=== PATIENT | female | born 1995 | race Caucasian/White ===

== ENCOUNTER 2023-01-12 20:40 | Inpatient (IN) | payer BC ==
[2023-01-12] MEDS ORDERED: ELECTROLYTE-148 SOLN 1,000 ML IV SCH (21:45)
[2023-01-12] MEDS ORDERED: AMPICILLIN SODIUM 2 GM VIAL ONE (21:53)
[2023-01-12] MEDS ORDERED: AMPICILLIN - 2 GM in SODIUM CHLORIDE 100 ML IVPB ONE (22:00)
[2023-01-12 22:09] LABS: BASO % 0.2 % (0-2.0); EOS % 1.3 % (0-4.5); HEMATOCRIT 34.5 % (32.4-45.2); HEMOGLOBIN 12.1 GM/dL (10.7-15.3); LYMPH % 15.8 % (8-40); MCH 31.2 pg (25.7-33.7); MCHC 35.1 g/dl (32.0-36.0); MEAN PLT VOLUME 10.4 fl (7.5-11.1); MONO % 10.5 % (3.8-10.2); NEUT % 72.2 % (42.8-82.8); PLATELET COUNT 149 10^3/uL (134-434); RBC 3.88 M/mm3 (3.60-5.2); RDW 12.9 % (11.6-15.6); WHITE BLOOD COUNT 10.9 K/mm3 (4.0-10.0)
[2023-01-12 22:17] LABS: INR 1.03 (0.83-1.09); PROTHROMBIN TIME (PATIENT) 11.9 SEC (9.7-13.0)
[2023-01-12 22:19] LABS: ACTIVATED PTT 26.2 SECONDS (25.2-36.5)
[2023-01-12 22:23] VITALS: BMI 24.1
[2023-01-12 22:41] LABS: POTASSIUM 4.2 mmol/L (3.5-5.1)
[2023-01-12 22:42] LABS: CALCIUM 8.8 mg/dL (8.5-10.1)
[2023-01-12 22:43] LABS: BLOOD UREA NITROGEN 6.2 mg/dL (7-18)
[2023-01-12 22:46] LABS: CREATININE 0.5 mg/dL (0.55-1.3)
[2023-01-13] MEDS: AMPICILLIN - 1 GM in SODIUM CHLORIDE 100 ML IVPB SCH ×2 (01:45→05:20)
[2023-01-13] MEDS ORDERED: AMPICILLIN SODIUM 1 GM VIAL ONE ×2 (01:45→05:16)
[2023-01-13] MEDS ORDERED: OXYTOCIN 20 UNITS in 0.9% NS 20 UNIT/1,000 ML INFUS.BAG IV ONE (02:34)
[2023-01-13] MEDS ORDERED: BISACODYL 10 MG SUPP.RECT RC PRN (07:23)
[2023-01-13] MEDS ORDERED: ACETAMINOPHEN 325 MG TABLET (FP) PO PRN (07:23)
[2023-01-13] MEDS ORDERED: BENZOCAINE 20% 57 GM BOTTLE TP PRN (07:23)
[2023-01-13] MEDS ORDERED: IBUPROFEN 600 MG TABLET (FP) PO PRN (07:23)
[2023-01-13] MEDS ORDERED: oxyCODONE HCL 5 MG TABLET PO PRN (07:23)
[2023-01-13] MEDS ORDERED: BENZOCAINE 28 GM HEMORRHOIDAL OINTMENT TP PRN (07:23)
[2023-01-13] MEDS ORDERED: METHYLERGONOVINE MALEATE 0.2 MG/1 ML AMP IM PRN (07:23)
[2023-01-13] MEDS ORDERED: WITCH HAZEL 50% (TUCKS) 40 PAD/JAR PAD TP PRN (07:23)
[2023-01-13] MEDS ORDERED: OXYTOCIN 20 UNITS in 0.9% NS 20 UNIT/1,000 ML INFUS.BAG IV SCH (07:30)
[2023-01-13] MEDS: PRENATAL VITAMINS W/ FOLIC ACID TABLET (FP) PO SCH (09:49)
[2023-01-14 07:34] LABS: BASO % 0.3 % (0-2.0); HEMATOCRIT 30.4 % (32.4-45.2); LYMPH % 15.8 % (8-40); MCHC 36.2 g/dl (32.0-36.0); MEAN CELL VOLUME 88.5 fl (80-96); MEAN PLT VOLUME 10.9 fl (7.5-11.1); MONO % 10.5 % (3.8-10.2); NEUT % 72.4 % (42.8-82.8); PLATELET COUNT 137 10^3/uL (134-434); RBC 3.44 M/mm3 (3.60-5.2); RDW 12.8 % (11.6-15.6); WHITE BLOOD COUNT 12.2 K/mm3 (4.0-10.0)
[2023-01-14] MEDS: PRENATAL VITAMINS W/ FOLIC ACID TABLET (FP) PO SCH (09:05)
[2023-01-14] MEDS ORDERED: SENNOSIDES/DOCUSATE COMBO (SENNA PLUS) TABLET (UD) PO PRN (22:00)
[2023-01-15] MEDS: PRENATAL VITAMINS W/ FOLIC ACID TABLET (FP) PO SCH (09:42)
[2023-01-15 10:39] VITALS: BP 115/73; PULSE 81; RESP 16; TEMP 99
== END 2023-01-15 12:20 | disposition home or self-care (01) | DRG 807 ==
LOC: JDEL 20:40 → JLDR 21:20 → J3W 01-13 08:35
PROVIDERS: ADMIT Obstetrics & Gynecology; ATTEND Obstetrics & Gynecology
PROC: 0W8NXZZ Division of Female Perineum, External Approach (ICD-10-PCS; principal; 2023-01-13)
PROC: 10E0XZZ Delivery of Products of Conception, External Approach (ICD-10-PCS; 2023-01-13)
DX: O99.824 Streptococcus B carrier state complicating childbirth (principal); Z37.0 Single live birth; O99.02 Anemia complicating childbirth; D64.9 Anemia, unspecified; Z3A.38 38 weeks gestation of pregnancy
CPT/HCPCS: 36415; 80048; 85025; 85610; 85730; 86780; 86850; 86900; 86901; 87635

== ENCOUNTER 2024-01-07 10:00 | Observation (INO) | payer BC ==
[2024-01-07] MEDS: ELECTROLYTE-148 SOLN 500 ML IV SCH (11:36)
[2024-01-07] MEDS: ELECTROLYTE-148 SOLN 1,000 ML IV SCH (12:40)
[2024-01-07 15:16] LABS: BASO % 0.2 % (0-2.0); EOS % 1.7 % (0-4.5); HEMATOCRIT 33.8 % (32.4-45.2); HEMOGLOBIN 11.7 GM/dL (10.7-15.3); LYMPH % 13.4 % (8-40); MCH 31.3 pg (25.7-33.7); MCHC 34.5 g/dl (32.0-36.0); MEAN CELL VOLUME 90.7 fl (80-96); MEAN PLT VOLUME 9.7 fl (7.5-11.1); MONO % 7.7 % (3.8-10.2); PLATELET COUNT 158 10^3/uL (134-434); RBC 3.73 M/mm3 (3.60-5.2); RDW 12.8 % (11.6-15.6); WHITE BLOOD COUNT 11.5 K/mm3 (4.0-10.0)
[2024-01-07 15:21] LABS: INR 1.05 (0.83-1.09); PROTHROMBIN TIME (PATIENT) 11.8 SEC (9.7-13.0)
[2024-01-07 15:23] LABS: ACTIVATED PTT 27.3 SECONDS (25.2-36.5)
[2024-01-07 15:39] LABS: CALCIUM 8.4 mg/dL (8.5-10.1); POTASSIUM 4.1 mmol/L (3.5-5.1)
[2024-01-07 15:40] LABS: BLOOD UREA NITROGEN 6.3 mg/dL (7-18)
[2024-01-07 15:43] LABS: CREATININE 0.5 mg/dL (0.55-1.3)
[2024-01-07] MEDS ORDERED: TERBUTALINE SULFATE 1 MG/1 ML VIAL SQ ONE (17:54)
[2024-01-07] MEDS ORDERED: FENTANYL CITRATE/PF 50 MCG/ML VIAL ONE (17:56)
[2024-01-07] MEDS ORDERED: BUPIVACAINE HCL/PF 0.25% (2.5MG/ML) 10 ML VIAL ONE (17:56)
[2024-01-07] MEDS: TERBUTALINE SULFATE 1 MG/1 ML VIAL SQ ONE (18:15)
[2024-01-07 18:25] VITALS: BMI 25.0
[2024-01-07] MEDS ORDERED: BETAMET ACET/BETAMET NA PH 30 MG/5 ML VIAL ONE (21:12)
[2024-01-07] MEDS: BETAMET ACET/BETAMET NA PH 30 MG/5 ML VIAL IM ONE (21:20)
[2024-01-07 22:17] LABS: HIV INTERPRETATION NEGATIVE (NEGATIVE)
[2024-01-08] MEDS ORDERED: FENTANYL CITRATE/PF 50 MCG/ML VIAL ONE (10:07)
[2024-01-08] MEDS: TERBUTALINE SULFATE 1 MG/1 ML VIAL SQ ONE (10:08)
[2024-01-08 11:52] VITALS: RESP 20
[2024-01-08 13:51] VITALS: BP 105/60; PULSE 94; TEMP 98.1
== END 2024-01-08 13:35 | disposition home or self-care (01) ==
LOC: JDEL 10:00 → JLDR 14:50
PROVIDERS: ADMIT Obstetrics & Gynecology; ATTEND Obstetrics & Gynecology
PROC: 10S0XZZ Reposition Products of Conception, External Approach (ICD-10-PCS; principal; 2024-01-07)
PROC: 3E013GC Introduction of Other Therapeutic Substance into Subcutaneous Tissue, Percutaneous Approach (ICD-10-PCS; 2024-01-07)
PROC: 3E023GC Introduction of Other Therapeutic Substance into Muscle, Percutaneous Approach (ICD-10-PCS; 2024-01-07)
PROC: 3E0337Z Introduction of Electrolytic and Water Balance Substance into Peripheral Vein, Percutaneous Approach (ICD-10-PCS; 2024-01-07)
DX: O60.03 Preterm labor without delivery, third trimester (principal); Z3A.36 36 weeks gestation of pregnancy; O32.1XX0 Maternal care for breech presentation, not applicable or unspecified
CPT/HCPCS: 36415; 59025; 80048; 85025; 85610; 85730; 86780; 86850; 86900; 86901; 87389; 96372; G0378

== ENCOUNTER 2024-01-12 22:35 | Inpatient (IN) | payer BC ==
[2024-01-12] MEDS: ELECTROLYTE-148 SOLN 500 ML IV ONE (23:20)
[2024-01-12] MEDS ORDERED: FENTANYL CITRATE/PF 50 MCG/ML VIAL ONE (23:34)
[2024-01-12] MEDS ORDERED: morphine SULFATE/PF 1 MG/2 ML (2cc Syringe - QUVA) ONE (23:34)
[2024-01-12] MEDS: CITRIC ACID/SODIUM CITRATE 30 ML UNIT-DOSE CUP PO ONE (23:35)
[2024-01-12] MEDS ORDERED: METOCLOPRAMIDE HCL INJECTION 10 MG/2 ML VIAL ONE (23:40)
[2024-01-12] MEDS ORDERED: ONDANSETRON 4 MG/2 ML VIAL ONE (23:40)
[2024-01-12] MEDS ORDERED: DEXAMETHASONE SOD PHOSPHATE 4 MG/1 ML VIAL ONE (23:40)
[2024-01-12] MEDS ORDERED: ceFAZolin SODIUM 1 GM VIAL ONE (23:41)
[2024-01-12] MEDS ORDERED: ePHEDrine SULFATE 50 MG/1 ML AMPULE ONE (23:53)
[2024-01-13] MEDS ORDERED: OXYTOCIN 10 UNITS/ML VIAL ONE (00:04)
[2024-01-13 00:48] LABS: CORD BASE EXCESS 0.3 mmol/L (0-2); CORD BASE EXCESS 0.6 mmol/L (0-2); CORD HCO3 26.2 mmHg (20-29); CORD HCO3 28.1 mmHg (20-29); CORD PCO2 56.3 mmHg (30-78); CORD pH 7.316 (7.14-7.44); CORD pH 7.383 (7.14-7.44)
[2024-01-13] MEDS ORDERED: METHYLERGONOVINE MALEATE 0.2 MG/1 ML AMP IM PRN (00:52)
[2024-01-13] MEDS ORDERED: ACETAMINOPHEN 325 MG TABLET (FP) PO PRN (00:52)
[2024-01-13] MEDS ORDERED: ONDANSETRON 4 MG/2 ML VIAL IVPUSH PRN (01:03)
[2024-01-13] MEDS ORDERED: OXYTOCIN 20 UNITS in 0.9% NS 20 UNIT/1,000 ML INFUS.BAG IV ONE (01:25)
[2024-01-13] MEDS: OXYTOCIN 20 UNITS in 0.9% NS 20 UNIT/1,000 ML INFUS.BAG IV SCH (01:26)
[2024-01-13 01:52] VITALS: BMI 25.0
[2024-01-13] MEDS ORDERED: oxyCODONE HCL 5 MG TABLET PO PRN ×2 (12:53)
[2024-01-13 16:37] VITALS: RESP 18
[2024-01-13] MEDS: IBUPROFEN 800 MG/8 ML IJ IVPB PRN (18:03)
[2024-01-13] MEDS: IBUPROFEN 600 MG TABLET (FP) PO PRN (22:23)
[2024-01-13] MEDS: SIMETHICONE 80 MG TAB.CHEW (FP) PO PRN (22:23)
[2024-01-14] MEDS ORDERED: BISACODYL 10 MG SUPP.RECT RC PRN (00:53)
[2024-01-14 07:42] LABS: BASO % 0.3 % (0-2.0); EOS % 0.8 % (0-4.5); HEMATOCRIT 34.7 % (32.4-45.2); HEMOGLOBIN 11.8 GM/dL (10.7-15.3); LYMPH % 16.2 % (8-40); MCHC 33.9 g/dl (32.0-36.0); MEAN CELL VOLUME 91.3 fl (80-96); MEAN PLT VOLUME 9.6 fl (7.5-11.1); MONO % 7.2 % (3.8-10.2); NEUT % 75.5 % (42.8-82.8); PLATELET COUNT 163 10^3/uL (134-434); RDW 12.9 % (11.6-15.6); WHITE BLOOD COUNT 14.1 K/mm3 (4.0-10.0)
[2024-01-15 09:35] VITALS: BP 111/73; PULSE 80; TEMP 97.8
== END 2024-01-15 12:40 | disposition home or self-care (01) | DRG 788 ==
LOC: JDEL 22:35 → JLDR 23:15 → J3W 01-13 03:04
PROVIDERS: ADMIT Obstetrics & Gynecology; ATTEND Obstetrics & Gynecology
PROC: 10D00Z1 Extraction of Products of Conception, Low, Open Approach (ICD-10-PCS; principal; 2024-01-12)
DX: O32.8XX0 Maternal care for other malpresentation of fetus, not applicable or unspecified (principal); O69.81X0 Labor and delivery complicated by cord around neck, without compression, not applicable or unspecified; O69.89X0 Labor and delivery complicated by other cord complications, not applicable or unspecified; O77.0 Labor and delivery complicated by meconium in amniotic fluid; O99.824 Streptococcus B carrier state complicating childbirth; Z3A.37 37 weeks gestation of pregnancy; Z37.0 Single live birth
CPT/HCPCS: 36415; 36600; 82803; 85025; 86850; 86900; 86901; 88307-TC; 94010